=== PATIENT | male | born 1935 | race Caucasian/White ===

== ENCOUNTER 2019-05-23 13:39 | Emergency (ER) | payer OTHER ==
--- NOTE | 2019-05-23 15:27 | RAD REPORT ---
EXAM DESCRIPTION: CT - Chest For Pe Angio - 05/23/2019 3:07 pm CLINICAL HISTORY: Chest pain elevated D-dimer COMPARISON: None. TECHNIQUE: Dynamically enhanced axial 3 mm thick images of the chest were obtained during administra tion of <100> mL Isovue 370 IV contrast. Coronal and oblique reconstruction images were generated and reviewed. Exam utilizes a protocol for optimal evaluation of pulmonary arterial tree. Maximum intensity projections 3D imaging was utilized All CT scans are performed using dose optimization technique as appropriate and may include automated exposure control or mA/KV adjustment according to patient size. FINDINGS: Low-density is present within the left lower lobe segmental pulmonary artery. Main pulmonary, right and left main and right pulmonary arteries do not have thrombus. . A thoracic aortic aneurysm is not noted. A pleural effusion is not seen. A pericardial effusion is not seen. A lung consolidation is not present. IMPRESSION: Low-density within left lower lobe segmental pulmonary artery probably representing pulm onary embolus
--- NOTE | 2019-05-23 16:26 | RAD REPORT ---
EXAM DESCRIPTION: USExtrem Venous W Compress Bil05/23/2019 3:48 pm CLINICAL HISTORY: Bilateral leg swelling COMPARISON: none FINDINGS: The common femoral, superficial femoral, popliteal and posterior tibial veins bilaterally are compressible and demonstrate augmentation. Doppler demonstrates good flow. IMPRESSION: No evidence of deep venous thrombosis involving either lower extremity.
--- NOTE | 2019-05-23 16:50 | EDPHYS ---
Physician Documentation [facility] Name: Ady Mendoza Age: 83 yrs Sex: Male : 1935 Arrival Date: 05/23/2019 Time: 13:39 Bed 26 Private MD: Abisai Woods V ED Physician Salvador Grace HPI: 05/23 15:28 This 83 yrs old Male presents to ER via Wheelchair with complaints of Sent by jr8 Dr. Woods for CT chest. 15:28 Patient was seen by PCP today for wound on bottom of foot. Stated that he has also had jr8 bilateral lower extremity edema. Dr. Woods ordered labs which the DD came back elevated. Sent to ED at that time for US and CT PE . Severity of symptoms: At their worst the symptoms were mild in the emergency department the symptoms are unchanged. The patient has not experienced similar symptoms in the past. The patient has been recently seen by a physician:. Patient denies CP or shortness of breath. Historical: - Allergies: 13:50 No Known Allergies; aa5 - Home Meds: 13:50 None [Active]; aa5 - PMHx: 13:50 None; aa5 - PSHx: 13:50 prostate removal; aa5 - Immunization history:: Pneumococcal vaccine is not up to date, Flu vaccine is not up to date. - Social history:: Smoking status: Patient/guardian denies using tobacco. - Ebola Screening: : No symptoms or risks identified at this time. ROS: 15:28 Eyes: Negative for injury, pain, redness, and discharge, ENT: Negative for injury, jr8 pain, and discharge, Neck: Negative for injury, pain, and swelling, Respiratory: Negative for shortness of breath, cough, wheezing, and pleuritic chest pain, Abdomen/GI: Negative for abdominal pain, nausea, vomiting, diarrhea, and constipation, Back: Negative for injury and pain, MS/Extremity: Negative for injury and deformity, Skin: Negative for injury, rash, and discoloration, Neuro: Negative for headache, weakness, numbness, tingling, and seizure. 15:28 Cardiovascular: Positive for edema. Exam: 15:28 Eyes: Pupils equal round and reactive to light, extra-ocular motions intact. Lids and jr8 lashes normal. Conjunctiva and sclera are non-icteric and not injected. Cornea within normal limits. Periorbital areas with no swelling, redness, or edema. ENT: Nares patent. No nasal discharge, no septal abnormalities noted. Tympanic membranes are normal and external auditory canals are clear. Oropharynx with no redness, swelling, or masses, exudates, or evidence of obstruction, uvula midline. Mucous membranes moist. Neck: Trachea midline, no thyromegaly or masses palpated, and no cervical lymphadenopathy. Supple, full range of motion without nuchal rigidity, or vertebral point tenderness. No Meningismus. Respiratory: Lungs have equal breath sounds bilaterally, clear to auscultation and percussion. No rales, rhonchi or wheezes noted. No increased work of breathing, no retractions or nasal flaring. Abdomen/GI: Soft, non-tender, with normal bowel sounds. No distension or tympany. No guarding or rebound. No evidence of tenderness throughout. Back: No spinal tenderness. No costovertebral tenderness. Full range of motion. Skin: Warm, dry with normal turgor. Normal color with no rashes, no lesions, and no evidence of cellulitis. MS/ Extremity: Pulses equal, no cyanosis. Neurovascular intact. Full, normal range of motion. Neuro: Awake and alert, GCS 15, oriented to person, place, time, and situation. Cranial nerves II-XII grossly intact. Motor strength 5/5 in all extremities. Sensory grossly intact. Cerebellar exam normal. Normal gait. 15:28 Cardiovascular: Rate: normal, Rhythm: regular, Pulses: Pulses are 2+ in right radial artery and left radial artery. Heart sounds: normal, Edema: 2+ edema to level of left midcalf, left ankle, left foot, right midcalf, right ankle and right foot. Vital Signs: 13:51 BP 194 / 91; Pulse 83; Resp 18 S; Temp 98.3(TE); Pulse Ox 94% on R/A; Weight 124.74 kg aa5 (R); Height 6 ft. 3 in. (190.50 cm) (R); Pain 3/10; 14:21 BP 187 / 84; Pulse 79; Resp 18; Pulse Ox 95% on R/A; mg2 16:33 BP 184 / 97; Pulse 70; Resp 18; Pulse Ox 99% on R/A; mg2 13:51 Body Mass Index 34.37 (124.74 kg, 190.50 cm) aa5 MDM: 14:19 Patient medically screened. 8 16:11 Data reviewed: vital signs, nurses notes, lab test result(s), EKG, radiologic studies, jr8 CT scan, ultrasound. Data interpreted: Pulse oximetry: on room air is 95 %. Interpretation: normal. Counseling: I had a detailed discussion with the patient and/or guardian regarding: the historical points, exam findings, and any diagnostic results supporting the discharge/admit diagnosis, lab results, radiology results. ED course: Spoke with Dr. Woods and Maria Luz. Would like to start patient on Xarelto 15 mg PO BID outpatient salazar if his insurance accepts the prescription. Pending approval from pharmacy now . 05/23 14:46 Order name: CT Chest For PE Angio; Complete Time: 15:44 05/23 14:27 Order name: EKG; Complete Time: 14:28 [facility] 05/23 14:27 Order name: Cardiac monitoring; Complete Time: 14:47 [facility] 05/23 14:27 Order name: EKG - Nurse/Tech; Complete Time: 16:12 [facility] 05/23 14:27 Order name: IV Saline Lock; Complete Time: 14:58 8 05/23 14:27 Order name: O2 Per Protocol; Complete Time: 14:58 [facility] 05/23 14:27 Order name: O2 Sat Monitoring; Complete Time: 14:58 8 05/23 14:46 Order name: US Extremity Venous W Compression Nathanael; Complete Time: 16:29 jr8 Administered Medications: No medications were administered Disposition: 05/23/19 16:49 Discharged to Home. Impression: Pulmonary embolism. - Condition is Stable. - Discharge Instructions: Pulmonary Embolism. - Medication Reconciliation Form, Thank You Letter, Antibiotic Education, Prescription Opioid Use form. - Follow up: Abisai Woods MD; When: Upon discharge from the Emergency Department; Reason: Recheck today's complaints, Continuance of care, Re-evaluation by your physician. - Problem is new. - Symptoms have improved. Addendum: 05/27/2019 08:40 Co-signature as Attending Physician, Salvador Grace MD I agree with the assessment and k plan of care. Signatures: Dispatcher [employer] EDSalvador Silva MD MD kdr Calderon, Audri, RN RN aa5 Natanael Rollins PA PA jr8 Jayda Salazar, RN RN tw2 Corrections: (The following items were deleted from the chart) 05/23 14:46 14:27 Labs collected and sent ordered. jr8 tw2 14:50 14:28 BASIC METABOLIC PANEL+C.LAB.BRZ ordered. EDMS EDMS 14:50 14:28 CBC+H.LAB.BRZ ordered. EDMS EDMS 14:50 14:28 MAGNESIUM+C.LAB.BRZ ordered. EDMS EDMS 14:50 14:28 PROBNP+C.LAB.BRZ ordered. EDMS EDMS 14:50 14:28 PROTIME (+INR)+COAG.LAB.BRZ ordered. EDMS EDMS 17:01 16:49 05/23/2019 16:49 Discharged to Home. Impression: Pulmonary embolism. Condition is tw2 Stable. Forms are Medication Reconciliation Form, Thank You Letter, Antibiotic Education, Prescription Opioid Use. Follow up: Abisai Woods; When: Upon discharge from the Emergency Department; Reason: Recheck today's complaints, Continuance of care, Re-evaluation by your physician. Problem is new. Symptoms have improved. jr8
--- NOTE | 2019-05-23 16:50 | ER ---
Nurse's Notes [facility] Name: Ady Mendoza Age: 83 yrs Sex: Male : 1935 Arrival Date: 05/23/2019 Time: 13:39 Bed 26 Private MD: Abisai Woods V Diagnosis: Pulmonary embolism Presentation: 05/23 13:48 Presenting complaint: Sent by Dr. Woods for CT chest r/o PE. Pt c/o janki leg swelling, aa5 janki hip pain, and janki leg pain. Pt denies SOB, denies chest pain. Transition of care: patient was not received from another setting of care. Onset of symptoms was 2018. Risk Assessment: Do you want to hurt yourself or someone else? Patient reports no desire to harm self or others. Initial Sepsis Screen: Does the patient meet any 2 criteria? No. Patient's initial sepsis screen is negative. Does the patient have a suspected source of infection? No. Patient's initial sepsis screen is negative. Care prior to arrival: None. 13:48 Method Of Arrival: Wheelchair aa5 13:48 Acuity: MCKAYLA 2 aa5 Historical: - Allergies: 13:50 No Known Allergies; aa5 - Home Meds: 13:50 None [Active]; aa5 - PMHx: 13:50 None; aa5 - PSHx: 13:50 prostate removal; aa5 - Immunization history:: Pneumococcal vaccine is not up to date, Flu vaccine is not up to date. - Social history:: Smoking status: Patient/guardian denies using tobacco. - Ebola Screening: : No symptoms or risks identified at this time. Screenin:22 Abuse screen: Denies threats or abuse. Denies injuries from another. Nutritional mg2 screening: No deficits noted. Tuberculosis screening: No symptoms or risk factors identified. Fall Risk None identified. Assessment: 14:23 General: Appears in no apparent distress. comfortable, Behavior is calm, cooperative. mg2 Pain: Denies pain. Neuro: Level of Consciousness is awake, alert, obeys commands, Oriented to person, place, time, situation. Cardiovascular: Capillary refill < 3 seconds Patient's skin is warm and dry. Respiratory: Airway is patent Respiratory effort is even, unlabored, Respiratory pattern is regular, symmetrical. GI: No signs and/or symptoms were reported involving the gastrointestinal system. : No signs and/or symptoms were reported regarding the genitourinary system. EENT: No signs and/or symptoms were reported regarding the EENT system. Derm: Skin is intact, is healthy with good turgor, Skin is pink, warm \T\ dry. normal. 15:17 Reassessment: patient sent to ct scan and ultrasound via stretcher. mg2 16:59 Reassessment: advised patient to go to dr montelongo office now. discharged ambulatory, mg2 pain free, GCS 15/15 not in distress. Patient denies pain at this time. Vital Signs: 13:51 BP 194 / 91; Pulse 83; Resp 18 S; Temp 98.3(TE); Pulse Ox 94% on R/A; Weight 124.74 kg aa5 (R); Height 6 ft. 3 in. (190.50 cm) (R); Pain 3/10; 14:21 BP 187 / 84; Pulse 79; Resp 18; Pulse Ox 95% on R/A; mg2 16:33 BP 184 / 97; Pulse 70; Resp 18; Pulse Ox 99% on R/A; mg2 13:51 Body Mass Index 34.37 (124.74 kg, 190.50 cm) aa5 ED Course: 13:39 Patient arrived in ED. as 13:41 Abisai Woods MD is Private Physician. as 13:48 Arm band placed on. aa5 13:49 Triage completed. aa5 14:19 Natanael Rollins PA is PHCP. jr8 14:19 Salvador Grace MD is Attending Physician. jr8 14:20 Adan Davidson RN is Primary Nurse. mg2 14:24 Patient has correct armband on for positive identification. monitoring and evaluation advisor on. Pulse mg2 ox on. NIBP on. Door closed. Warm blanket given. Pillow given. 14:58 Inserted saline lock: 20 gauge in right antecubital area, using aseptic technique. lt1 15:07 CT completed. Patient tolerated procedure well. Patient moved to CT. Patient moved back jg6 from CT. 15:08 CT Chest For PE Angio In Process Unspecified. EDMS 15:48 US Extremity Venous W Compression Janki In Process Unspecified. EDMS 16:25 EKG done, by recreation technician. reviewed by Natanael KAY. sm3 16:34 No provider procedures requiring assistance completed. mg2 16:49 Abisai Woods MD is Referral Physician. jr8 17:00 IV discontinued, intact, bleeding controlled, No redness/swelling at site. Pressure mg2 dressing applied. Administered Medications: No medications were administered Outcome: 16:49 Discharge ordered by . jr8 16:59 Discharged to home ambulatory, pt instructed to go to Dr. Woods's office at this time, tw2 pt vu. 16:59 Condition: stable 16:59 Discharge instructions given to patient, family, Instructed on discharge instructions, follow up and referral plans. Demonstrated understanding of instructions, follow-up care. 17:01 Patient left the ED. tw2 Signatures: Dispatcher [employer] EDMS Fina Reyes Audri, RN RN aa5 Natanael Rollins PA PA jr8 Jayda Ritchie RN RN tw2 Adan Davidson RN RN mg2 Elenita Jorge 3 Bronwyn Kaye6 Laura Muniz 1 Corrections: (The following items were deleted from the chart) 13:52 13:48 Acuity: MCKAYLA 3 aa5 aa5 13:52 13:51 BP 194 / 91; Pulse 83bpm; Resp 18bpm; Spontaneous; Pulse Ox 94% RA; Temp 83F; aa5 124.74 kg Reported; Height 6 ft. 3 in. Reported; BMI: 34.3; Pain 3/10; aa5
[2019-05-23 17:32] VITALS: TEMP 98.3
[2019-05-23 17:35] VITALS: BP 184/97; O2SAT 99
--- NOTE | 2019-05-24 12:36 | EKG ---
Test Date: 2019-05-23 Test Time: 16:04:43 Or Rn: MARTÍNEZ MEASUREMENT RESULTS: Intervals: Rate: 71 MI: 130 QRSD: 116 QT: 400 QTc: 434 [place]: P: 76 MI: 130 QRS: 54 T: 25 INTERPRETIVE STATEMENTS: Sinus rhythm with premature atrial complexes with aberrant conduction Otherwise normal ECG Compared to ECG 05/11/2015 06:31:31 Atrial premature complex(es) now present Aberrant conduction of supraventricular beat(s) now present Electronically Signed On 05-24-19 12:33:03 CDT by Harrison Bedolla
== END 2019-05-23 17:01 | disposition home or self-care (01) ==
LOC: ER 13:39
DX: I26.99 Other pulmonary embolism without acute cor pulmonale (principal)
CPT/HCPCS: 93005; 71275; 93970; 99285; Q9967

== ENCOUNTER 2019-08-11 21:21 | Emergency (ER) | payer OTHER ==
[2019-08-11] MEDS ORDERED: MORPHINE 4 MG/ML SYR ONE (23:29)
[2019-08-11] MEDS ORDERED: CEFTRIAXONE/SWI 1gm 1 GM/10 ML SYR ONE (23:29)
[2019-08-11] MEDS ORDERED: ONDANSETRON 4 MG/2 ML VIAL ONE (23:29)
[2019-08-11 23:49] LABS: Absolute Lymphocytes (CBC) 1.3 K/uL (0.7-4.9); Basophils % 0.5 % (0-1.3); Hematocrit 43.2 % (39.6-49.0); Lymphocytes % 7.9 % (15.3-44.8); MPV 8.6 fL (7.6-11.3); RBC Red Blood Cell Count 4.56 M/uL (4.33-5.43)
[2019-08-11 23:54] LABS: Protime INR 2.14
[2019-08-12 00:14] LABS: ALT/SGPT 88 U/L (12-78); AST/SGOT 54 U/L (15-37); Albumin 2.5 g/dL (3.4-5.0); Alkaline Phosphatase 199 U/L (45-117); BUN Blood Urea Nitrogen 23 mg/dL (7-18); Bicarbonate 25 mmol/L (21-32); Bilirubin Direct 3.1 mg/dL (0-0.2); Bilirubin Total 4.1 mg/dL (0.2-1.0); Glucose Level 151 mg/dL (74-106); Lipase 106 U/L (73-393); Magnesium 2.3 mg/dL (1.8-2.4); NT PRO-BNP 734 pg/mL (<450); Potassium 4.4 mmol/L (3.5-5.1); Protein, Total 6.9 g/dL (6.4-8.2); Sodium Level 140 mmol/L (136-145); Troponin (Emerg Dept Use Only) < 0.02 ng/mL (0.0-0.045)
[2019-08-12] MEDS ORDERED: PIPER/TAZO/NS 3.375gm 3.375 GM/100 ML BAG ONE (02:34)
--- NOTE | 2019-08-12 02:40 | EDPHYS ---
Physician Documentation [facility] Name: Ady Mendoza Age: 83 yrs Sex: Male : 1935 Arrival Date: 08/11/2019 Time: 21:28 Bed 8 Private MD: ED Physician Erick Ro HPI: 08/11 22:52 This 83 yrs old Male presents to ER via EMS with complaints of Flank Pain. jovon 22:52 The patient complains of pain in the right mid back and right low back. The pain does jovon not radiate. Onset: The symptoms/episode began/occurred 6 day(s) ago. Modifying factors: The symptoms are alleviated by nothing. the symptoms are aggravated by nothing. Associated signs and symptoms: The patient has no apparent associated signs or symptoms. Severity of pain: At its worst the pain was mild moderate in the emergency department the pain is unchanged. The patient has not experienced similar symptoms in the past. Historical: - Allergies: 21:35 Ciprofloxacin; fc - Home Meds: 21:35 amlodipine 5 mg tab 1 tab twice a day [Active]; Xarelto 20 mg oral tab 1 tab once daily fc [Active]; Coreg 6.25 mg Oral tab 1 tab 2 times per day [Active]; - PMHx: 21:35 TIA; pulmonary embolis; Hypertension; fc - PSHx: 21:35 prostate removal; fc - Immunization history:: Last tetanus immunization: unknown, Flu vaccine is not up to date. - Social history:: Smoking status: Patient/guardian denies using tobacco, Patient/guardian denies using alcohol, street drugs. - Ebola Screening: : Patient negative for fever greater than or equal to 101.5 degrees Fahrenheit, and additional compatible Ebola Virus Disease symptoms Patient denies exposure to infectious person Patient denies travel to an Ebola-affected area in the 21 days before illness onset. - Family history:: not pertinent. ROS: 22:52 Constitutional: Negative for fever, chills, and weight loss, Eyes: Negative for injury, jovon pain, redness, and discharge, ENT: Negative for injury, pain, and discharge, Neck: Negative for injury, pain, and swelling, Cardiovascular: Negative for chest pain, palpitations, and edema, Respiratory: Negative for shortness of breath, cough, wheezing, and pleuritic chest pain, MS/Extremity: Negative for injury and deformity, Skin: Negative for injury, rash, and discoloration, Neuro: Negative for headache, weakness, numbness, tingling, and seizure, Psych: Negative for depression, anxiety, suicide ideation, homicidal ideation, and hallucinations, Allergy/Immunology: Negative for hives, rash, and allergies, Endocrine: Negative for neck swelling, polydipsia, polyuria, polyphagia, and marked weight changes, Hematologic/Lymphatic: Negative for swollen nodes, abnormal bleeding, and unusual bruising. 22:52 Abdomen/GI: Positive for abdominal pain, nausea and vomiting, of the anterior aspect of right lateral abdomen, posterior aspect of right lateral abdomen, right upper quadrant and right lower quadrant. Exam: 22:52 Constitutional: This is a well developed, well nourished patient who is awake, alert, jovon and in no acute distress. Head/Face: Normocephalic, atraumatic. Eyes: Pupils equal round and reactive to light, extra-ocular motions intact. Lids and lashes normal. Conjunctiva and sclera are non-icteric and not injected. Cornea within normal limits. Periorbital areas with no swelling, redness, or edema. ENT: Nares patent. No nasal discharge, no septal abnormalities noted. Tympanic membranes are normal and external auditory canals are clear. Oropharynx with no redness, swelling, or masses, exudates, or evidence of obstruction, uvula midline. Mucous membranes moist. Neck: Trachea midline, no thyromegaly or masses palpated, and no cervical lymphadenopathy. Supple, full range of motion without nuchal rigidity, or vertebral point tenderness. No Meningismus. Chest/axilla: Normal chest wall appearance and motion. Nontender with no deformity. No lesions are appreciated. Cardiovascular: Regular rate and rhythm with a normal S1 and S2. No gallops, murmurs, or rubs. Normal PMI, no JVD. No pulse deficits. Respiratory: Lungs have equal breath sounds bilaterally, clear to auscultation and percussion. No rales, rhonchi or wheezes noted. No increased work of breathing, no retractions or nasal flaring. Male : Normal genitalia with no discharge or lesions. Skin: Warm, dry with normal turgor. Normal color with no rashes, no lesions, and no evidence of cellulitis. MS/ Extremity: Pulses equal, no cyanosis. Neurovascular intact. Full, normal range of motion. Neuro: Awake and alert, GCS 15, oriented to person, place, time, and situation. Cranial nerves II-XII grossly intact. Motor strength 5/5 in all extremities. Sensory grossly intact. Cerebellar exam normal. Normal gait. Psych: Awake, alert, with orientation to person, place and time. Behavior, mood, and affect are within normal limits. 22:52 Abdomen/GI: Inspection: distension, Bowel sounds: active, Palpation: mild abdominal tenderness, in the anterior aspect of right lateral abdomen, posterior aspect of right lateral abdomen, right upper quadrant and right lower quadrant. Vital Signs: 21:19 BP 163 / 82; Pulse 94; Resp 18; Temp 98.0(O); Pulse Ox 85% on R/A; Weight 117.93 kg; fc Height 6 ft. 2 in. (187.96 cm); Pain 8/10; 22:30 BP 143 / 82; Pulse 72; Resp 18; Pulse Ox 94% on 3 lpm NC; ea 23:00 BP 121 / 81; Pulse 81; Resp 20; Pulse Ox 95% on 3 lpm NC; ea 08/12 00:00 BP 130 / 51; Pulse 79; Resp 20; Pulse Ox 96% on 3 lpm NC; ea 01:34 BP 134 / 72; Pulse 93; Resp 20; Pulse Ox 96% 3 lpm ; ea 03:42 BP 123 / 60; Pulse 92; Resp 18; Pulse Ox 95% on 3 lpm NC; ea 05:09 BP 117 / 90; Pulse 88; Resp 18; Temp 97.8; Pulse Ox 98% on 3 lpm NC; ea 08/11 21:19 Body Mass Index 33.38 (117.93 kg, 187.96 cm) MDM: 08/11 22:05 Patient medically screened. [facility] 22:55 Data reviewed: vital signs, nurses notes, lab test result(s), EKG, radiologic studies, [facility] CT scan, plain films. 08/11 22:51 Order name: Basic Metabolic Panel; Complete Time: 00:17 jovon 08/11 22:51 Order name: CBC with Diff; Complete Time: 00:17 [facility] 08/11 22:51 Order name: LFT's; Complete Time: 00:17 [facility] 08/11 22:51 Order name: Magnesium; Complete Time: 00:17 [facility] 08/11 22:51 Order name: NT PRO-BNP; Complete Time: 00:17 [facility] 08/11 22:51 Order name: PT-INR; Complete Time: 00:17 [facility] 08/11 22:51 Order name: Troponin (emerg Dept Use Only); Complete Time: 00:17 [facility] 08/11 22:51 Order name: XRAY Chest (1 view) 08/11 22:51 Order name: Lipase; Complete Time: 00:17 [facility] 08/11 22:51 Order name: Type And Screen; Complete Time: 02:27 [facility] 08/11 22:51 Order name: Urine Culture [facility] 08/12 02:32 Order name: ABO/RH no charge; Complete Time: 02:46 EDMS 08/12 02:39 Order name: Urine Dipstick--Ancillary (enter results); Complete Time: 03:19 08/11 22:51 Order name: EKG; Complete Time: 22:52 [facility] 08/11 22:51 Order name: Cardiac monitoring; Complete Time: 23:47 [facility] 08/11 22:51 Order name: EKG - Nurse/Tech; Complete Time: 23:47 [facility] 08/11 22:51 Order name: IV Saline Lock; Complete Time: 23:47 [facility] 08/11 22:51 Order name: Labs collected and sent; Complete Time: 23:47 [facility] 08/11 22:51 Order name: O2 Per Protocol; Complete Time: 23:47 [facility] 08/11 22:51 Order name: O2 Sat Monitoring; Complete Time: 23:47 [facility] 08/11 22:51 Order name: Urine Dipstick-Ancillary (obtain specimen); Complete Time: 02:31 [facility] 08/12 00:21 Order name: CT Chest Abdomen Pelvis W/O Contrast: no iv no oral jovon Administered Medications: 23:32 Drug: Zofran 4 mg Route: IVP; Site: left forearm; ea 08/12 00:44 Follow up: Response: No adverse reaction 08/11 23:39 Drug: morphine 4 mg Route: IVP; Site: left forearm; ea 08/12 00:44 Follow up: Response: No adverse reaction; Pain is decreased 08/11 23:52 Drug: Rocephin - (cefTRIAXone) 1 grams Route: IVPB; Infused Over: 30 mins; Site: left ea forearm; 08/12 00:10 Follow up: Response: No adverse reaction; IV Status: Completed infusion; IV Intake: 10mlea 02:37 Not Given (Duplicate Order): Zosyn 3.375 grams IVPB once over 60 mins; (mix in NS 100 jovon mL) 02:55 Drug: Zosyn 3.375 grams Route: IVPB; Infused Over: 60 mins; Site: left forearm; ea 04:23 Follow up: Response: No adverse reaction; IV Status: Completed infusion; IV Intake: ea 100ml Disposition: 08/12/19 02:[address] [facility]. Diagnosis are Cholelithiasis, Cholecystitis, Abdominal tenderness, Elevated white blood cell count, Coagulation defect, unspecified - xarelto, Unspecified kidney failure - insufficency. - Reason for transfer: Higher level of care. - Accepting physician is to [facility]. - Condition is Fair. - Problem is new. - Symptoms have improved. Signatures: Dispatcher [employer] EDDE Erick Ro MD MD cha Chretien, Felicia RN RN Jessica Rosales RN RN ea Corrections: (The following items were deleted from the chart) 01:39 08/11 22:52 Angio Aorta For Dissection+CT.RAD.BRZ ordered. [facility] 08/12 05:10 02:39 08/12/2019 02:[address] [facility]. Diagnosis is ea Cholelithiasis; Cholecystitis; Abdominal tenderness; Elevated white blood cell count; Coagulation defect, unspecified - xarelto; Unspecified kidney failure - insufficency. Reason for transfer: Higher level of care. Accepting physician is to [facility]. Condition is Fair. Problem is new. Symptoms have improved. jovon
--- NOTE | 2019-08-12 02:40 | ER ---
Nurse's Notes [facility] Name: Ady Mendoza Age: 83 yrs Sex: Male : 1935 Arrival Date: 08/11/2019 Time: 21:28 Bed 8 Private MD: Diagnosis: Cholelithiasis;Cholecystitis;Abdominal tenderness;Elevated white blood cell count;Coagulation defect, unspecified-xarelto;Unspecified kidney failure-insufficency Presentation: 08/11 21:19 Presenting complaint: EMS states: that they were toned for pt having right flank pain fc that radiates up to right shoulder. 5 days ago they took pt to [facility] for possible IA, he was cleared, given diuretic and sent home. Transition of care: patient was not received from another setting of care. Onset of symptoms was August 11, 2019. Risk Assessment: Do you want to hurt yourself or someone else? Patient reports no desire to harm self or others. Initial Sepsis Screen: Does the patient meet any 2 criteria? HR > 90 bpm. No. Patient's initial sepsis screen is negative. Does the patient have a suspected source of infection? No. Patient's initial sepsis screen is negative. Care prior to arrival: Medication(s) given: Normal saline infusion, 350 ml zofran 4 mg, Fentanyl 100 mcg ivp IV initiated. 20 GA, in the left wrist, Glucose check: 162. 21:19 Method Of Arrival: EMS: [facility] 21:19 Acuity: MCKAYLA 3 fc Triage Assessment: 21:31 General: Appears in no apparent distress. Behavior is calm, cooperative, appropriate ea for age. Pain: Complains of pain in posterior aspect of left lateral abdomen and posterior aspect of right lateral abdomen. Neuro: Level of Consciousness is awake, alert, obeys commands, Oriented to person, place, time, situation. Cardiovascular: Patient's skin is warm and dry. Cardiovascular: janki lower extremity edema noted . Respiratory: Airway is patent Respiratory effort is even, unlabored, Respiratory pattern is regular, symmetrical. GI: Abdomen is distended. Derm: Skin is dry, Skin is pale, Skin temperature is warm. Musculoskeletal: Circulation, motion, and sensation intact. Historical: - Allergies: 21:35 Ciprofloxacin; fc - Home Meds: 21:35 amlodipine 5 mg tab 1 tab twice a day [Active]; Xarelto 20 mg oral tab 1 tab once daily fc [Active]; Coreg 6.25 mg Oral tab 1 tab 2 times per day [Active]; - PMHx: 21:35 TIA; pulmonary embolis; Hypertension; fc - PSHx: 21:35 prostate removal; fc - Immunization history:: Last tetanus immunization: unknown, Flu vaccine is not up to date. - Social history:: Smoking status: Patient/guardian denies using tobacco, Patient/guardian denies using alcohol, street drugs. - Ebola Screening: : Patient negative for fever greater than or equal to 101.5 degrees Fahrenheit, and additional compatible Ebola Virus Disease symptoms Patient denies exposure to infectious person Patient denies travel to an Ebola-affected area in the 21 days before illness onset. - Family history:: not pertinent. Screenin:19 Abuse screen: Denies threats or abuse. Nutritional screening: No deficits noted. fc Tuberculosis screening: No symptoms or risk factors identified. Fall Risk None identified. 21:34 Abuse screen: Denies threats or abuse. Nutritional screening: No deficits noted. ea Tuberculosis screening: No symptoms or risk factors identified. Fall Risk None identified. Assessment: 21:36 Reassessment: see triage assessment. ea 22:50 Reassessment: Patient and/or family updated on plan of care and expected duration. Pain ea level reassessed. Patient is alert, oriented x 3, equal unlabored respirations, skin warm/dry/pink. 23:50 Reassessment: Patient and/or family updated on plan of care and expected duration. Pain ea level reassessed. Patient is alert, oriented x 3, equal unlabored respirations, skin warm/dry/pink. 08/12 00:43 Reassessment: Patient and/or family updated on plan of care and expected duration. Pain ea level reassessed. Patient is alert, oriented x 3, equal unlabored respirations, skin warm/dry/pink. 01:00 Reassessment: Patient and/or family updated on plan of care and expected duration. Pain ea level reassessed. Patient is alert, oriented x 3, equal unlabored respirations, skin warm/dry/pink. Pt taken to CT. 01:18 Reassessment: Patient and/or family updated on plan of care and expected duration. Pain ea level reassessed. Patient is alert, oriented x 3, equal unlabored respirations, skin warm/dry/pink. Pt returned from CT, awaiting on CT results. 01:50 Reassessment: Patient and/or family updated on plan of care and expected duration. Pain ea level reassessed. Patient is alert, oriented x 3, equal unlabored respirations, skin warm/dry/pink. Pt reminded that a urine sample was needed, pt states " we can do that later". 02:38 Reassessment: Patient and/or family updated on plan of care and expected duration. Pain ea level reassessed. Patient is alert, oriented x 3, equal unlabored respirations, skin warm/dry/pink. Provider at bedside updating pt on plan of care. 03:42 Reassessment: Patient and/or family updated on plan of care and expected duration. Pain ea level reassessed. Patient is alert, oriented x 3, equal unlabored respirations, skin warm/dry/pink. 04:21 Reassessment: Patient and/or family updated on plan of care and expected duration. Pain ea level reassessed. Patient is alert, oriented x 3, equal unlabored respirations, skin warm/dry/pink. Report called to Janice GARCIA at [facility]. 04:38 Reassessment: Awaiting on EMS for transport. ea 05:07 Reassessment: Patient and/or family updated on plan of care and expected duration. Pain ea level reassessed. Patient is alert, oriented x 3, equal unlabored respirations, skin warm/dry/pink. Report given to [facility], pt left ED via stretcher per EMS, pt tolerating well. Vital Signs: 08/11 21:19 BP 163 / 82; Pulse 94; Resp 18; Temp 98.0(O); Pulse Ox 85% on R/A; Weight 117.93 kg; fc Height 6 ft. 2 in. (187.96 cm); Pain 8/10; 22:30 BP 143 / 82; Pulse 72; Resp 18; Pulse Ox 94% on 3 lpm NC; ea 23:00 BP 121 / 81; Pulse 81; Resp 20; Pulse Ox 95% on 3 lpm NC; ea 08/12 00:00 BP 130 / 51; Pulse 79; Resp 20; Pulse Ox 96% on 3 lpm NC; ea 01:34 BP 134 / 72; Pulse 93; Resp 20; Pulse Ox 96% 3 lpm ; ea 03:42 BP 123 / 60; Pulse 92; Resp 18; Pulse Ox 95% on 3 lpm NC; ea 05:09 BP 117 / 90; Pulse 88; Resp 18; Temp 97.8; Pulse Ox 98% on 3 lpm NC; ea 08/11 21:19 Body Mass Index 33.38 (117.93 kg, 187.96 cm) ED Course: 08/11 21:19 Arm band placed on Patient placed in an exam room, on a stretcher. fc 21:19 Patient has correct armband on for positive identification. Bed in low position. Call light in reach. Side rails up X2. mill dresser on. Pulse ox on. NIBP on. 21:28 Patient arrived in ED. fc 21:32 Triage completed. fc 21:34 Patient has correct armband on for positive identification. Bed in low position. Call light in reach. Side rails up X2. 21:36 Jessica Foley RN is Primary Nurse. ea 22:05 Erick Ro MD is Attending Physician. jovon 22:59 Radiology exam delayed due to lab results not completed at this time. (BUN/Creatinine). bq 23:28 Radiology exam delayed due to lab results not completed at this time. (BUN/Creatinine). kw1 23:53 Radiology exam delayed due to lab results not completed at this time. (BUN/Creatinine). kw1 08/12 00:57 XRAY Chest (1 view) In Process Unspecified. EDMS 01:26 CT Chest Abdomen Pelvis W/O Contrast: no iv no oral In Process Unspecified. EDMS 02:57 Patient transferred, IV remains in place. ea 05:09 No provider procedures requiring assistance completed. ea Administered Medications: 08/11 23:32 Drug: Zofran 4 mg Route: IVP; Site: left forearm; ea 08/12 00:44 Follow up: Response: No adverse reaction ea 08/11 23:39 Drug: morphine 4 mg Route: IVP; Site: left forearm; ea 08/12 00:44 Follow up: Response: No adverse reaction; Pain is decreased ea 08/11 23:52 Drug: Rocephin - (cefTRIAXone) 1 grams Route: IVPB; Infused Over: 30 mins; Site: left ea forearm; 08/12 00:10 Follow up: Response: No adverse reaction; IV Status: Completed infusion; IV Intake: 10mlea 02:37 Not Given (Duplicate Order): Zosyn 3.375 grams IVPB once over 60 mins; (mix in NS 100 jovon mL) 02:55 Drug: Zosyn 3.375 grams Route: IVPB; Infused Over: 60 mins; Site: left forearm; ea 04:23 Follow up: Response: No adverse reaction; IV Status: Completed infusion; IV Intake: ea 100ml Intake: 00:10 IV: 10ml; Total: 10ml. ea 04:23 IV: 100ml; Total: 110ml. ea Outcome: 02:39 ER care complete, transfer ordered by . jovon 02:57 Instructed on the need for transfer. ea 05:09 Transferred by ground EMS to [facility], Transfer form completed. ea X-rays sent w/ patient. 05:09 Condition: stable 05:10 Patient left the ED. ea Signatures: Dispatcher [employer] EDMA Erick Ro MD MD cha Quilty, Betty bq Chretien, Felicia RN RN Jessica Rosales RN RN ea Wilhelm, Kimberly kw1 Corrections: (The following items were deleted from the chart) 01:29 01:18 Reassessment: Patient and/or family updated on plan of care and expected ea duration. Pain level reassessed. Patient is alert, oriented x 3, equal unlabored respirations, skin warm/dry/pink. Pt returned from CT ea
[2019-08-12 02:47] LABS: Urine Blood 1+ (NEG); Urine Glucose NEGATIVE (NEG); Urine Protein 2+ (NEG); Urine Specific Gravity 1.025 (1.005-1.030)
[2019-08-12 05:26] VITALS: BP 117/90; TEMP 97.8; O2SAT 98
--- NOTE | 2019-08-12 07:25 | RAD REPORT ---
EXAM DESCRIPTION: Daniel Single View08/12/2019 12:57 am CLINICAL HISTORY: Abdominal pain COMPARISON: May 2019 FINDINGS: Areas atelectasis are present within the lung bases. Upper lobes are clear. Heart is mildl y enlarged IMPRESSION: Bibasilar atelectasis
--- NOTE | 2019-08-12 07:50 | EKG ---
Test Date: 2019-08-11 Test Time: 23:21:24 Sander Setter: YOANA MEASUREMENT RESULTS: Intervals: Rate: 100 VT: 152 QRSD: 112 QT: 358 QTc: 461 Mcalester: P: 40 VT: 152 QRS: 76 T: 1 INTERPRETIVE STATEMENTS: Sinus rhythm with premature supraventricular complexes Cannot rule out Inferior infarct, age undetermined Abnormal ECG Compared to ECG 05/23/2019 16:04:43 Myocardial infarct finding now present Aberrant conduction of supraventricular beat(s) no longer present Electronically Signed On 08-12-19 07:50:00 CDT by Wiley Calzada
--- NOTE | 2019-08-12 10:20 | RAD REPORT ---
EXAM DESCRIPTION: CT - Chest Abd Pelvis Wo Con - 08/12/2019 5:34 am CLINICAL HISTORY: 83-year-old male with cough, abdominal distention and pain, right flank pain. TECHNIQUE: CT imaging of the chest, abdomen and pelvis without intravenous contrast administration. Sagittal and coronal reconstructed images were performed. The CT study is performed according to ALAR A (as low as reasonably achievable) or ALARA/IMAGE GENTLY, with automatic adjustment of mA and/or kV according to patient size. Performed on: 08/12/2019 at 1:10 AM COMPARISON: None FINDINGS: CHEST: Lungs: The lungs are well expanded. There is patchy bibasilar parenchymal opacification likely reflec ting a combination of fibrosis and atelectasis. There is a trace right pleural effusion. There is a c alcified granuloma in the right lower lobe posteriorly. There is no pneumothorax. Heart: The heart is normal in size. There is no pericardial effusion. Mediastinum: The mediastinum is unremarkable. The mediastinal vessels are normal in caliber and con tour. There are atherosclerotic calcifications along the thoracic aorta. Bones: No acute osseous abnormalities are identified. There are mild to moderate chronic degenerative changes along the thoracic spine and visualized lumbar spine. Soft tissues: No focal soft tissue abnormalities are identified. Lymphadenopathy: No pathologic hilar, mediastinal or axillary lymphadenopathy is identified. ABDOMEN/PELVIS: Liver: The liver is mildly enlarged and measures 19 cm in craniocaudal dimension. No focal hepatic ab normalities are identified. Liver attenuation is within normal limits. Spleen: The spleen is normal is size, configuration and attenuation. Gallbladder and bile duct: The gallbladder is moderately distended. The gallbladder is heterogeneou s in attenuation and there is pericholecystic inflammation concerning for acute cholecystitis. There is no evidence of biliary ductal dilatation. Pancreas: The pancreas is grossly normal in size and configuration. Adrenal Glands: The adrenal glands are normal in size and configuration. Kidneys: The kidneys are grossly normal in size. There are bilateral renal hypodense mass lesions mos t consistent with benign renal cysts. The largest on the right arises from the upper pole and measure s approximately 5 cm. The largest on the left arises from the lower pole and measures approximate 6 c m. There is no evidence of hydronephrosis. There is no evidence of nephrolithiasis. There is mild str anding of the perinephric fat bilaterally which is nonspecific but can be seen with chronic medical r enal disease. Stomach: The stomach is grossly normal. There is no definite hiatal hernia. Bowel: The bowel gas pattern is non specific and non obstructive. There is scattered colonic divertic ulosis. There is mesenteric inflammation surrounding the hepatic flexure likely related to adjacent g allbladder pathology. Appendix: The appendix is not well visualized on this examination. There is no definite CT evidence t o suggest acute appendicitis. Free air: There is no evidence of free air. Free fluid: There is no evidence of free fluid. Vasculature: The aorta is normal in caliber and contour. The inferior vena cava is grossly unremarkab le. There are mild atherosclerotic calcifications along the abdominal aorta and iliac arteries. Lymphadenopathy: No pathologic lymphadenopathy is identified. Bladder: The bladder is well distended and smooth in contour. Reproductive: The prostate gland is grossly within normal limits. Bones: No acute osseous abnormalities are identified. There are chronic degenerative changes of the t horacolumbar spine. Soft tissues: No focal soft tissue abnormalities are identified. IMPRESSION: 1. Patchy bibasilar parenchymal opacification likely reflecting combination of fibrosis and atelectasis. There is a trace right pleural effusion. 2. Evidence of prior granulomatous disease. 3. Moderate gallbladder distention with pericholecystic inflammatory changes concerning for acute cho lecystitis. There is no evidence of biliary ductal dilatation. 4. Hepatomegaly. 5. Degenerative changes of the skeletal and vascular structures. 6. Colonic diverticulosis without evidence of diverticulitis. 7. Bilateral renal cysts. Electronically signed by: Nae uKmar DO 08/12/2019 1:45 AM CDT Due to temporary technical issues with the PACS/Fluency reporting system, reports are being signed by the in house radiologist as a courtesy to ensure prompt reporting. The interpreting radiologist is f ully responsible for the content of the report.
== END 2019-08-12 05:10 | disposition short-term general hospital (02) ==
LOC: ER 21:21
DX: K80.10 Calculus of gallbladder with chronic cholecystitis without obstruction (principal); D72.829 Elevated white blood cell count, unspecified; N28.9 Disorder of kidney and ureter, unspecified; D68.9 Coagulation defect, unspecified; I10 Essential (primary) hypertension; Z79.01 Long term (current) use of anticoagulants; Z88.3 Allergy status to other anti-infective agents; Z86.73 Personal history of transient ischemic attack (TIA), and cerebral infarction without residual deficits
CPT/HCPCS: 96365; 96367; 93005; 87088; 85025; 87086; 80048; 36415; 86900; 83735; 86850; 85610; 86901; 80076; 81003; 84484; 83690; 83880; 71250; 74176; 71045; 96375; 99285; J2543; J0696; J2405